=== PATIENT | male | born 2000 | race Hispanic/Latino ===

== ENCOUNTER 2025-11-20 20:32 | Emergency (ER) | payer OTHER ==
[~2025-11-20] VITALS: Ht 177.8 cm; Wt 87.7 kg
[2025-11-20] MEDS ORDERED: ISONIAZID300 MG PO (20:56)
[2025-11-20] MEDS ORDERED: VITAMIN B-650 MG PO (20:57)
[2025-11-20] MEDS ORDERED: PRIFTIN150 MG PO (20:57)
[2025-11-22 22:12] LABS: QUANTIFERON MITOGEN MINUS NIL 9.95 IU/mL (()); QUANTIFERON NIL 0.05 IU/mL (()); QUANTIFERON PLUS TB1 MINUS NIL 0.06 IU/mL (<=0.34); QUANTIFERON PLUS TB2 MINUS NIL 0.09 IU/mL (<=0.34); QUANTIFERON TB GOLD PLUS Negative (Negative)
== END 2025-11-20 21:55 | disposition home or self-care (01) ==
LOC: ED 20:32
PROVIDERS: Family Medicine
DX: S93.401A Sprain of unspecified ligament of right ankle, initial encounter (principal); W50.0XXA Accidental hit or strike by another person, initial encounter; Y93.67 Activity, basketball
CPT/HCPCS: 36415; 73610; 99283